=== PATIENT | female | born 1940 | race Hispanic/Latino ===

== ENCOUNTER → 2017-10-08 | Outpatient (CLI) | payer OTHER | LOC: SHCH 14:00 | PROVIDERS: ATTEND Internal Medicine Cardiovascular Disease | DX: K21.9 Gastro-esophageal reflux disease without esophagitis (principal) | CPT/HCPCS: 93970 ==

== ENCOUNTER → 2017-11-24 | Outpatient (CLI) | payer OTHER | END | disposition home or self-care (01) | LOC: SHCH 09:51 | PROVIDERS: ATTEND Internal Medicine Cardiovascular Disease | DX: Z09 Encounter for follow-up examination after completed treatment for conditions other than malignant neoplasm (principal) | CPT/HCPCS: 93971 ==

== ENCOUNTER 2020-05-15 07:30 | Emergency (ER) | payer OTHER ==
[~2020-05-15] VITALS: Ht 152.4 cm; Wt 80.3 kg
[2020-05-15 07:40] LABS: BASOPHILS % (AUTO) 0.4 % (0.0-5.0); EOSINOPHILS % (AUTO) 1.9 % (0.0-8.0); HEMATOCRIT 38.4 % (36-48); LYMPHOCYTES % (AUTO) 18.5 % (21.0-51.0); MEAN CORPUSCULAR HEMOGLOBIN 25.7 pg (27.0-33.0); MEAN CORPUSCULAR HGB CONC 30.7 g/dL (32.0-36.0); MEAN CORPUSCULAR VOLUME 83.7 fL (79-99); MONOCYTES % (AUTO) 6.8 % (3.0-13.0); NEUTROPHILS % (AUTO) 71.9 % (40.0-77.0); PLATELET COUNT (AUTO) 148 K/uL (130-400); RED BLOOD CELL COUNT(AUTO) 4.59 MIL/uL (4.00-5.50); RED CELL DISTRIBUTION WIDTH 14.6 % (11.0-15.5)
[2020-05-15 07:52] LABS: ALBUMIN 3.5 g/dL (3.5-5.0); BILIRUBIN,TOTAL 0.4 mg/dL (0.2-1.0); CREATININE 0.9 mg/dL (0.5-1.5); TOTAL PROTEIN, SERUM 6.8 g/dL (6.0-8.3)
[2020-05-15] MEDS ORDERED: ACETAMINOPHEN EXTRA STRENGTH 500 MG TABLET ONE (10:16)
[2020-05-15] MEDS ORDERED: KETOROLAC TROMETHAMINE 30MG/ML ONE (10:16)
[2020-05-15] MEDS ORDERED: LIDOCAINE 5% TOPICAL PATCH TP ONE (10:25)
[2020-05-15] MEDS ORDERED: NIFEDIPINE 10 MG CAP PO SCH (10:30)
[2020-05-15] MEDS ORDERED: NIFEDIPINE 10 MG CAP ONE (10:33)
== END 2020-05-15 12:19 | disposition home or self-care (01) ==
LOC: EDH 07:30
DX: S22.42XA Multiple fractures of ribs, left side, initial encounter for closed fracture (principal); S40.012A Contusion of left shoulder, initial encounter; S40.022A Contusion of left upper arm, initial encounter; E78.00 Pure hypercholesterolemia, unspecified; W18.39XA Other fall on same level, initial encounter; Y93.01 Activity, walking, marching and hiking; Y92.89 Other specified places as the place of occurrence of the external cause; Y99.8 Other external cause status
CPT/HCPCS: 36415; 70450; 71101; 71250; 73030; 73060; 80053; 85025; 93005; 96374; 99284; J1885

== ENCOUNTER → 2022-12-12 | Outpatient (CLI) | payer MEDICARE | END | disposition home or self-care (01) | LOC: RAH 07:39 | PROVIDERS: ATTEND Orthopaedic Surgery | DX: M47.816 Spondylosis without myelopathy or radiculopathy, lumbar region (principal); M48.061 Spinal stenosis, lumbar region without neurogenic claudication; M51.26 Other intervertebral disc displacement, lumbar region | CPT/HCPCS: 72148 ==

== ENCOUNTER 2023-07-02 09:19 | Emergency (ER) | payer MEDICARE, OTHER ==
[~2023-07-02] VITALS: Ht 152.4 cm; Wt 81.2 kg
[2023-07-02 10:06] LABS: APPEARANCE,URINE TURBID (CLEAR); BILIRUBIN,URINE NEGATIVE (NEGATIVE); COLOR,URINE YELLOW (YELLOW); GLUCOSE, URINE (UA) NEGATIVE (NEGATIVE); KETONES,URINE NEGATIVE (NEGATIVE); LEUKOCYTE ESTERASE ,URINE 500 Leu/uL (NEGATIVE); NITRATE,URINE NEGATIVE (NEGATIVE); OCCULT BLOOD,URINE MODERATE (NEGATIVE); PROTEIN,URINE 70 mg/dL (NEGATIVE); UROBILINOGEN,URINE 0.2 mg/dL (0.2-1.0)
[2023-07-02 10:11] LABS: ADD UA MICROSCOPIC YES
[2023-07-02] MEDS ORDERED: CEFTRIAXONE 1G VIAL IM ONE (10:30)
[2023-07-02] MEDS ORDERED: PHENAZOPYRIDINE HCL 200 MG TABLET PO ONE (10:30)
[2023-07-02] MEDS ORDERED: LIDOCAINE HCL 1% 20 ML VIAL ONE (10:41)
[2023-07-02 10:52] LABS: BACTERIA,URINE MOD /HPF (None Seen); MUCUS,URINE RARE LPF (None Seen); RBC,URINE 51-100 /HPF (0-1); TRANSITIONAL EPI CELLS,URINE FEW /HPF (None Seen); WBC CLUMP MANY /HPF (0-1); WBC,URINE TNTC /HPF (0-1); YEAST,URINE BUDDING RARE /HPF (None Seen)
[2023-07-02] MEDS ORDERED: CEPH500B PO (11:43)
[2023-07-02 11:50] VITALS: BP 144/88; PULSE 88; RESP 16; O2SAT 97
== END 2023-07-02 12:03 | disposition home or self-care (01) ==
LOC: EDH 09:19
DX: N39.0 Urinary tract infection, site not specified (principal); R35.0 Frequency of micturition; R30.0 Dysuria; R31.9 Hematuria, unspecified
CPT/HCPCS: 99283; 87077; 87088; 87186; 81001; 96372; J0696

== ENCOUNTER → 2023-07-22 | Outpatient (CLI) | payer MEDICARE ==
[~2023-07-22] MED LIST: CEPH500B PO; REGADENOSON 0.4 MG/5 ML PF SYG IVP ONE
== END | disposition home or self-care (01) ==
LOC: SHCH 08:41
PROVIDERS: ATTEND Internal Medicine Cardiovascular Disease
DX: R94.39 Abnormal result of other cardiovascular function study (principal); R06.09 Other forms of dyspnea; R07.9 Chest pain, unspecified
CPT/HCPCS: 78452; 96374; 93017; J2785; A9500 ×2

== ENCOUNTER → 2023-07-26 | Outpatient (CLI) | payer MEDICARE ==
[~2023-07-26] MED LIST changes: -REGADENOSON 0.4 MG/5 ML PF SYG IVP ONE
== END | disposition home or self-care (01) ==
LOC: SHCH 07:43
PROVIDERS: ATTEND Internal Medicine Cardiovascular Disease
DX: I87.2 Venous insufficiency (chronic) (peripheral) (principal); I82.412 Acute embolism and thrombosis of left femoral vein; I87.1 Compression of vein
CPT/HCPCS: 93970

== ENCOUNTER → 2023-07-28 | Outpatient (CLI) | payer MEDICARE | END | disposition home or self-care (01) | LOC: RAH 11:25 | PROVIDERS: ATTEND Orthopaedic Surgery | DX: M16.12 Unilateral primary osteoarthritis, left hip (principal); M17.12 Unilateral primary osteoarthritis, left knee; M85.88 Other specified disorders of bone density and structure, other site; M25.462 Effusion, left knee; M19.072 Primary osteoarthritis, left ankle and foot | CPT/HCPCS: 73700 ==

== ENCOUNTER → 2023-09-08 | Outpatient (CLI) | payer MEDICARE ==
[2023-09-08 10:28] LABS: CREATININE 0.9 mg/dL (0.5-1.5); POTASSIUM 4.2 mmol/L (3.5-5.1)
== END | disposition home or self-care (01) ==
LOC: LAB 09:12
PROVIDERS: ATTEND Internal Medicine Cardiovascular Disease
DX: I25.10 Atherosclerotic heart disease of native coronary artery without angina pectoris (principal)
CPT/HCPCS: 36415; 80048

== ENCOUNTER 2023-10-14 10:16 | Emergency (ER) | payer MEDICARE ==
[~2023-10-14] VITALS: Ht 152.4 cm; Wt 78.5 kg
[2023-10-14 14:08] VITALS: BP 175/54; PULSE 68; RESP 17; O2SAT 98
[2023-10-14] MEDS ORDERED: METO-296 PO (15:50)
[2023-10-14] MEDS ORDERED: HYDR50CA50 PO (15:50)
[2023-10-16] MEDS ORDERED: PRAV20TA4 PO (10:21)
[2023-10-16] MEDS ORDERED: LOSA25TA41 PO (10:21)
[2023-10-16] MEDS ORDERED: METF-444 PO (10:21)
== END 2023-10-14 16:03 | disposition home or self-care (01) ==
LOC: EDH 10:16
DX: G44.209 Tension-type headache, unspecified, not intractable (principal); I10 Essential (primary) hypertension; E11.9 Type 2 diabetes mellitus without complications; E78.00 Pure hypercholesterolemia, unspecified
CPT/HCPCS: 70450; 72125

== ENCOUNTER 2023-10-21 06:11 | Observation (INO) | payer MEDICARE ==
[2023-10-16 09:54] VITALS: BP 169/62; PULSE 77; RESP 16
[2023-10-16 10:08] LABS: BASOPHILS # (AUTO) 0.05 K/uL (0.00-0.20); BASOPHILS % (AUTO) 0.5 % (0.0-5.0); EOSINOPHILS # (AUTO) 0.13 K/uL (0.00-0.70); EOSINOPHILS % (AUTO) 1.2 % (0.0-8.0); HEMATOCRIT 37.2 % (36-48); IMMATURE GRANULOCYTE ABSOLUTE 0.04 K/uL (0-1); LYMPHOCYTES # (AUTO) 1.7 K/uL (1.0-4.8); LYMPHOCYTES % (AUTO) 15.2 % (21.0-51.0); MEAN CORPUSCULAR HEMOGLOBIN 27.7 pg (27.0-33.0); MEAN CORPUSCULAR HGB CONC 31.7 g/dL (32.0-36.0); MEAN CORPUSCULAR VOLUME 87.3 fL (79-99); MONOCYTES # (AUTO) 0.7 K/uL (0.1-1.0); MONOCYTES % (AUTO) 6.1 % (3.0-13.0); NEUTROPHILS # (AUTO) 8.5 K/uL (1.8-7.7); NEUTROPHILS % (AUTO) 76.6 % (40.0-77.0); PLATELET COUNT (AUTO) 155 K/uL (130-400); RED BLOOD CELL COUNT(AUTO) 4.26 MIL/uL (4.00-5.50); RED CELL DISTRIBUTION WIDTH 14.4 % (11.0-15.5)
[2023-10-16 10:14] LABS: CREATININE 0.9 mg/dL (0.5-1.0); POTASSIUM 4.4 mmol/L (3.5-5.1)
[2023-10-16 10:29] LABS: INR <= 0.93 (0.85-1.15); PROTHROMBIN TIME 10.5 SEC (9.6-11.6)
[2023-10-16 10:31] LABS: PARTIAL THROMBOPLASTIN TIME 32.2 SEC (26.3-35.5)
[~2023-10-21] VITALS: Ht 152.4 cm; Wt 84.4 kg
[2023-10-21] VITALS (24 sets, daily range): BP systolic 124–158; BP diastolic 55–82; PULSE 58–80; RESP 15–18
[~2023-10-21 06:11] MED LIST changes: -CEPH500B PO; +LOSA25TA41 PO; +METF-444 PO; +PRAV20TA4 PO
[2023-10-21] MEDS ORDERED: DEXAMETHASONE SOD PHOSPHATE 10MG/ML 1ML VIAL ONE (06:50)
[2023-10-21] MEDS ORDERED: MIDAZOLAM HCL 1 MG/ML 2ML VIAL ONE ×2 (06:50→07:51)
[2023-10-21] MEDS ORDERED: LIDOCAINE PF 100MG/5ML (2%) SYRINGE 5ML ONE (06:50)
[2023-10-21] MEDS ORDERED: NEOSTIGMINE METHYLSULFATE 1MG/ML IV ONE (06:50)
[2023-10-21] MEDS ORDERED: PROPOFOL 10 MG/ML 20ML VIAL IV ONE (06:50)
[2023-10-21] MEDS ORDERED: GLYCOPYRROLATE 0.2 MG/ML 5 ML VIAL ONE (06:50)
[2023-10-21] MEDS ORDERED: SUCCINYLCHOLINE CHLORIDE 20 MG/ML 10 ML VIAL ONE (06:50)
[2023-10-21] MEDS ORDERED: FENTANYL CITRATE PF 50 MCG/1 ML 2ML VIAL ONE ×2 (06:51→08:27)
[2023-10-21] MEDS ORDERED: ROCURONIUM BROMIDE 10MG/1ML 5ML VL ONE (06:51)
[2023-10-21] MEDS ORDERED: ONDANSETRON 4MG INJ ONE (06:51)
[2023-10-21] MEDS: CEFAZOLIN SODIUM 2 GM VIAL ONE (06:53)
[2023-10-21] MEDS ORDERED: ROPIVACAINE 0.5% 5MG/ML 30ML ONE (06:55)
[2023-10-21] MEDS ORDERED: PHENYLEPHRINE HCL 10 MG/ML 1ML VIAL IV ONE (07:00)
[2023-10-21] MEDS ORDERED: TRANEXAMIC ACID 1000MG/10ML ONE (08:30)
[2023-10-21] MEDS: 0.9%NACL 1000ML 1,000 ML IV ONE (09:14)
[2023-10-21] MEDS ORDERED: MEPERIDINE-PF 25 MG/ML SYG ONE (09:25)
[2023-10-21] MEDS ORDERED: KCL 20 MEQ ERTAB PO PRN (10:00)
[2023-10-21] MEDS ORDERED: ONDANSETRON 4MG INJ IVP PRN (10:00)
[2023-10-21] MEDS ORDERED: POTASSIUM CHLORIDE 10% ELIXIR 20 MEQ/15 ML UDCUP PO PRN (10:00)
[2023-10-21] MEDS ORDERED: MORPHINE 4 MG SYG IVP PRN (10:00)
[2023-10-21] MEDS ORDERED: POTASSIUM CHLORIDE 20MEQ/100ML 100 ML IV PRN (10:00)
[2023-10-21] MEDS: ACETAMINOPHEN 1,000 MG/100 ML VIAL IV ONE (10:31)
[2023-10-21] MEDS: ACETAMINOPHEN 1,000 MG/100 ML VIAL IV SCH (10:31)
[2023-10-21] MEDS: INSULIN HUMULIN R 100 UNIT/ML 3ML SQ SCH (11:30)
[2023-10-21] MEDS: HYDROCODONE/ACETAMINOPHEN 10/325 MG TAB ONE (11:55)
[2023-10-21] MEDS: CEFAZOLIN SODIUM 2 GM VIAL IVPB SCH (16:00)
[2023-10-21] MEDS: IBUPROFEN 800MG + NS 250ML IV SCH (16:00)
[2023-10-21] MEDS: 0.9%NACL 1000ML 1,000 ML IV SCH (16:00)
[2023-10-21] MEDS: ATORVASTATIN 10 MG TABLET PO SCH (20:03)
[2023-10-21] MEDS: METFORMIN HCL 500 MG TABLET PO SCH (20:03)
[2023-10-21] MEDS: ASPIRIN 81 MG EC TAB PO SCH (20:03)
[2023-10-21] MEDS: FAMOTIDINE 20MG TAB PO SCH (20:03)
[2023-10-21] MEDS: LOSARTAN 25 MG TABLET PO SCH (20:03)
[2023-10-21] MEDS ORDERED: PHARMACY COMMUNICATION MISC SCH ×2 (20:30→21:00)
[2023-10-21] MEDS ORDERED: NON-FORMULARY MEDICATION 1 EACH (Pravastatin Sodium 1 TAB) PO SCH (21:00)
[2023-10-22] VITALS: BP 144/59; PULSE 82; RESP 17
[2023-10-22 04:00] VITALS: BP 145/66; PULSE 71; RESP 18
[2023-10-22 05:11] LABS: HEMATOCRIT 29.9 % (36-48); MEAN CORPUSCULAR HEMOGLOBIN 27.3 pg (27.0-33.0); MEAN CORPUSCULAR HGB CONC 31.4 g/dL (32.0-36.0); MEAN CORPUSCULAR VOLUME 86.9 fL (79-99); RED BLOOD CELL COUNT(AUTO) 3.44 MIL/uL (4.00-5.50); WHITE BLOOD COUNT (AUTO) 12.6 K/uL (4.8-10.8)
[2023-10-22 05:20] LABS: POTASSIUM 4.9 mmol/L (3.5-5.1)
[2023-10-22 08:00] VITALS: BP 133/60; PULSE 89; RESP 16
[2023-10-22] MEDS: FERROUS GLUCONATE 324MG TABLET.DR PO SCH (10:17)
[2023-10-22] MEDS: POLYETHYLENE GLYCOL 3350 17 GM POWD.PACK PO SCH (10:18)
[2023-10-22] MEDS: HYDROCODONE/ACETAMINOPHEN 5/325 MG TAB PO PRN (10:20)
[2023-10-22 11:44] VITALS: BP 143/67; PULSE 86; RESP 15
[2023-10-22] MEDS: HYDROCODONE/ACETAMINOPHEN 10/325 MG TAB PO PRN (16:38)
[2023-10-24] MEDS ORDERED: BISACODYL 10 MG SUPP.RECT RC PRN (10:00)
[2023-10-26] MEDS ORDERED: SIMV-43 PO (13:19)
[2023-10-26] MEDS ORDERED: METO25 PO (13:19)
[2023-10-26] MEDS ORDERED: LEVO750T68 PO (13:19)
[2023-11-13] MEDS ORDERED: METF-444 PO (04:01)
[2023-11-13] MEDS ORDERED: CELE-146 PO (04:01)
[2023-11-13] MEDS ORDERED: SIMV-43 PO (04:01)
== END 2023-10-22 18:45 | disposition home or self-care (01) ==
LOC: DAH 06:11 → DAHIP 06:12 → 4CH 15:30
PROVIDERS: ADMIT Orthopaedic Surgery; ATTEND Orthopaedic Surgery
DX: M17.12 Unilateral primary osteoarthritis, left knee (principal); I10 Essential (primary) hypertension; E11.9 Type 2 diabetes mellitus without complications; E78.5 Hyperlipidemia, unspecified; E66.9 Obesity, unspecified; Z79.899 Other long term (current) drug therapy; Z86.2 Personal history of diseases of the blood and blood-forming organs and certain disorders involving the immune mechanism
CPT/HCPCS: 87641; 36415; 80048; 85025; 85730; 85610; A6260; 82948; 85027; 96365; 96366; 96368; 96375; 96376; C1713; G0378; J0330; J1100; J1741; J1815; J2001; J2175; J2250; J2371; J2405; J2704; J2710; J2795; J3010; J3490; J7030; A4215; A4221; A4222; A4223; A4649; A4663; A4930; A5120; A6212; A6219; A6223; C1776; G0168; J0690

== ENCOUNTER 2023-11-08 17:52 | Emergency (ER) | payer MEDICARE ==
[~2023-11-08] VITALS: Ht 152.4 cm; Wt 77.1 kg
[~2023-11-08 17:52] MED LIST changes: +LEVO750T68 PO; +METO25 PO; +SIMV-43 PO
[2023-11-08 20:20] LABS: BASOPHILS # (AUTO) 0.02 K/uL (0.00-0.20); BASOPHILS % (AUTO) 0.2 % (0.0-5.0); EOSINOPHILS # (AUTO) 0.12 K/uL (0.00-0.70); EOSINOPHILS % (AUTO) 1.4 % (0.0-8.0); IMMATURE GRANULOCYTE ABSOLUTE 0.03 K/uL (0-1); LYMPHOCYTES # (AUTO) 1.4 K/uL (1.0-4.8); LYMPHOCYTES % (AUTO) 16.6 % (21.0-51.0); MEAN CORPUSCULAR HEMOGLOBIN 27.8 pg (27.0-33.0); MEAN CORPUSCULAR HGB CONC 32.1 g/dL (32.0-36.0); MEAN CORPUSCULAR VOLUME 86.8 fL (79-99); MONOCYTES # (AUTO) 0.6 K/uL (0.1-1.0); MONOCYTES % (AUTO) 6.6 % (3.0-13.0); NEUTROPHILS # (AUTO) 6.3 K/uL (1.8-7.7); NEUTROPHILS % (AUTO) 74.8 % (40.0-77.0); PLATELET COUNT (AUTO) 152 K/uL (130-400); RED BLOOD CELL COUNT(AUTO) 3.34 MIL/uL (4.00-5.50); RED CELL DISTRIBUTION WIDTH 14.8 % (11.0-15.5); WHITE BLOOD COUNT (AUTO) 8.4 K/uL (4.8-10.8)
[2023-11-08 20:30] LABS: CREATININE 0.8 mg/dL (0.5-1.0); POTASSIUM 3.8 mmol/L (3.5-5.1)
[2023-11-08 20:38] LABS: BILIRUBIN,TOTAL 0.6 mg/dL (0.2-1.0); TOTAL PROTEIN, SERUM 6.2 g/dL (6.0-8.3)
[2023-11-08 21:02] LABS: B-TYPE NATRIURETIC PEPTIDE 858 pg/mL (0-100)
[2023-11-08] MEDS ORDERED: TRAM50TA4 PO (21:30)
[2023-11-08] MEDS ORDERED: ALEN35TA53 PO (21:30)
[2023-11-08] MEDS ORDERED: MELO10CA3 PO (21:31)
[2023-11-08 22:30] VITALS: BP 146/68; PULSE 70; RESP 18; O2SAT 96
== END 2023-11-08 22:37 | disposition home or self-care (01) ==
LOC: EDH 17:52
DX: M54.32 Sciatica, left side (principal); I10 Essential (primary) hypertension; E11.9 Type 2 diabetes mellitus without complications; E78.00 Pure hypercholesterolemia, unspecified; M43.16 Spondylolisthesis, lumbar region; M47.816 Spondylosis without myelopathy or radiculopathy, lumbar region; Z98.890 Other specified postprocedural states; Z79.84 Long term (current) use of oral hypoglycemic drugs; Z79.899 Other long term (current) drug therapy; Z88.1 Allergy status to other antibiotic agents; Z88.8 Allergy status to other drugs, medicaments and biological substances
CPT/HCPCS: 36415; 72110; 73502; 80053; 83880; 85025; 93970

== ENCOUNTER 2024-08-07 02:18 | Emergency (ER) | payer MEDICARE ==
[~2024-08-07] VITALS: Ht 152.4 cm; Wt 78.5 kg
[~2024-08-07 02:18] MED LIST changes: +ALEN35TA53 PO; +CELE-146 PO; +MELO10CA3 PO; -PRAV20TA4 PO; +TRAM50TA4 PO
[2024-08-07 02:20] VITALS: TEMP 99.9
--- NOTE | 2024-08-07 02:42 | ERN ---
ED Note History of Present Illness Stated Complaint: L OCCIPITAL HEADACHE X 1 WEEK Chief Complaint: Headache Time Seen by MD: 02:19 Time Seen by Midlevel: 02:19 Dictation: The patient is an 84-year-old female with a history of hypertension, hyperlipide vickey who presents to the emergency department with complaints of left occipital headache onset three days ago. Patient denies any trauma, denies any nausea or vomiting, denies any dizziness, denies any fevers or any other complaints. Allergies: Coded Allergies: cephalexin (Unverified Allergy, Mild, RASH, 10/21/23) No Known Drug Allergies (Verified Allergy, Unknown, 05/15/20) Home Meds Active Scripts Meloxicam, Submicronized (Meloxicam) 10 Mg Capsule, 10 MG PO DAILY, #30 CAP Prov:BRUCE PARKINSON MD 11/08/23 Levofloxacin (Levaquin 750Mg Tabs) 750 Mg Tablet, 750 MG PO DAILY for 7 Days, #7 TAB Prov:BEKA COPE [employer]ING [employer]ER 10/26/23 Simvastatin (Simvastatin) 20 Mg Tablet, 40 MG PO HS for 30 Days, #30 TAB Prov:BEKA COPE [employer] 10/26/23 Metoprolol Tartrate (Lopressor) 25 Mg Tab, 25 MG PO BID for 30 Days, #60 TAB Prov:BEKA COPE [employer] 10/26/23 Reported Medications Celecoxib (Celecoxib) 100 Mg Capsule, 100 MG PO BID, CAP 11/13/23 Metformin HCl (Metformin HCl) 500 Mg Tablet, 500 MG PO DAILY, TAB 11/13/23 Simvastatin (Simvastatin) 20 Mg Tablet, 20 MG PO HS, TAB 11/13/23 Alendronate Sodium (Alendronate Sodium) 35 Mg Tablet, 1 TAB PO QWEEK 11/08/23 Tramadol Hcl (Tramadol HCl) 50 Mg Tablet, 1 TAB PO Q6HPRN PRN for PAIN 11/08/23 Metformin HCl (Metformin HCl) 500 Mg Tablet, 1 TAB PO HS 10/16/23 Losartan Potassium (Losartan Potassium) 25 Mg Tablet, 1 TAB PO HS 10/16/23 Past Medical History Past Medical History: Diabetes-Type II, High Cholesterol, Heart Disease, Hypertension Surgical History: Appendectomy Surgical History Other: LEFT KNEE REPLACEMENT Family History: Negative Social History: Negative RN Note Reviewed/Agreed w/PFSH: Yes Review of System Dictation Constitutional: Negative for fever,chills, and weight loss Eyes: Negative for injury, pain,redness, and discharge ENT: Negative for injury,pain or swelling Cardiovascular: Negative for chest pain, palpitations, and edema Respiratory: Negative for shortness of breath, cough, and wheezing, Abdomen/GI: Negative for abdominal pain, nausea, vomiting, diarrhea, and constipation Back: Negative for injury and pain : Negative for injury, bleeding and discharge MS/Extremity: Negative for injury and deformity Skin: Negative for rash, and discoloration Neuro: Negative for weakness, numbness, tingling, and seizure positive for headache Psych: Negative for suicide ideation, homicidal ideation, and hallucinations Initial Vital Sign VS Vital Signs Date Time Temp Pulse Resp B/P (MAP) Pulse Ox O2 Delivery O2 Flow Rate FiO2 08/07/24 02:19 99.9 82 16 136/54 97 Room Air* 0 21 Physical Exam Dictation Vital Signs reviewed General Appearance: Alert, oriented x 3, no acute distress, well developed, nourished. Head and Face: non-traumatic. Eyes: PERRL, pink conjunctivas, eyelid no trauma, anterior chamber with arcus senilis. Ears: Pinnas intact and no signs of trauma or erythema ear canals clear and no discharge TM no erythema Nose: No discharge, no bleeding. Oropharynx: Mouth normal, tongue pink. pharynx clear,no erythema, tonsils no exudates, no abscesses noted, mucous membrane moist Neck: Supple, non-tender, no thyromegaly, no masses, no JVD, no bruits Breast:Deferred Chest:No tenderness, no crepitus, no paradoxical movement, no retractions Lungs:Clear, well-ventilated, symmetric, no rales, no wheezing, no rhonchi, no stridor, good breath sounds bilaterally Heart: Regular rate, regular rhythm, no murmur, no gallops Vascular: no peripheral edema, Abdomen: Soft, positive bowel sounds, nondistended, no guarding, nontender, no rebound, no masses no hepatomegaly, no splenomegaly, no Lopez's sign, no hernias. Rectal: Deferred Genital: Deferred Neurological: Normal speech, motor function intact, sensory function intact Musculoskeletal: Neck nontender, full range of motion, back nontender, full range of motion, no facial droop, no slurred speech, upper extremities equal and strength, lower extremities equal and strength Extremities: nontender, full range of motion Skin: Color pink, dry, no turgor, no rash, no lacerations, no abrasions, no contusions. Lymphatic: Deferred Results (Laboratory/Radiology) Laboratory/Radiology Laboratory Tests Test 08/07/24 02:29 08/07/24 03:21 White Blood Count 10.8 K/uL (4.8-10.8) Red Blood Count 3.49 MIL/uL (4.00-5.50) L Hemoglobin 9.6 g/dL (12.0-16.0) L Hematocrit 30.3 % (36-48) L Mean Corpuscular Volume 86.8 fL (79-99) Mean Corpuscular Hemoglobin 27.5 pg (27.0-33.0) Mean Corpuscular Hemoglobin Concent 31.7 g/dL (32.0-36.0) L Red Cell Distribution Width 13.8 % (11.0-15.5) Platelet Count 158 K/uL (130-400) Mean Platelet Volume 11.4 fL (7.5-10.5) H Immature Granulocyte % (Auto) 0.4 % (0-1) Neutrophils (%) (Auto) 82.4 % (40.0-77.0) H Lymphocytes (%) (Auto) 9.9 % (21.0-51.0) L Monocytes (%) (Auto) 6.5 % (3.0-13.0) Eosinophils (%) (Auto) 0.6 % (0.0-8.0) Basophils (%) (Auto) 0.2 % (0.0-5.0) Neutrophils # (Auto) 8.9 K/uL (1.8-7.7) H Lymphocytes # (Auto) 1.1 K/uL (1.0-4.8) Monocytes # (Auto) 0.7 K/uL (0.1-1.0) Eosinophils # (Auto) 0.06 K/uL (0.00-0.70) Basophils # (Auto) 0.02 K/uL (0.00-0.20) Absolute Immature Granulocyte (auto 0.04 K/uL (0-1) Nucleated Red Blood Cells 0.0 % (0.0-0.19) White Cell Morphology Comment See comments Sodium Level 134 mmol/L (136-145) L Potassium Level 3.7 mmol/L (3.5-5.1) Chloride Level 99 mmol/L (101-111) L Carbon Dioxide Level 29 mmol/L (21-32) Blood Urea Nitrogen 26 mg/dL (7-18) H Creatinine 1.0 mg/dL (0.5-1.0) Glomerular Filtration Rate Calc 55 mL/min (>90) Random Glucose 279 mg/dL (70-105) H Total Calcium 8.6 mg/dL (8.5-10.1) Influenza Type A Antigen Negative For Type A Influenza Type B Antigen Negative For Type B SARS-CoV-2 Antigen (Rapid) PRESUMPTIVE NEGATIVE Labs Reviewed?: Yes CT Scan Comment: CT head- comparison to 11/12/2023, no acute intracranial findings substantial change, mild age-related generalized brain volume loss and chronic small-vessel ischemic changes. ED Course ED Course Orders Procedure Category Date Status Time Cbc With Differential LAB 08/07/24 Complete 02:37 0.9%Nacl 1000ml (Ns PHA 08/07/24 In Process 1000ml) 03:00 Acetaminophen 325 Tab PHA 08/07/24 Complete (Tylenol 325mg Tab 03:00 Basic Metabolic Panel LAB 08/07/24 Complete 02:37 Covid19 (Sars Antigen LAB 08/07/24 Complete Rapid) 02:37 Influenza Type A & B, LAB 08/07/24 Complete Rapid 02:37 Ct Head/Brain W/O CT 08/07/24 Taken Contrast 02:37 Current Medications Medications (Trade) Dose Ordered Sig/Nikita Route PRN Reason Start Time Stop Time Status Last Admin Dose Admin Acetaminophen (TYLenol 325MG TAB) 650 mg ONCE ONCE PO 08/07/24 03:00 08/07/24 03:01 DC 08/07/24 03:10 Sodium Chloride 1,000 ml @ 125 mls/hr ONCE ONCE IV 08/07/24 03:00 08/07/24 10:59 08/07/24 03:10 Vital Signs Date Time Temp Pulse Resp B/P (MAP) Pulse Ox O2 Delivery O2 Flow Rate FiO2 08/07/24 05:18 76 16 136/46 97 Room Air* 0 21 08/07/24 03:23 85 16 159/77 98 Room Air* 0 08/07/24 02:20 99.9 82 16 136/54 97 0 08/07/24 02:19 99.9 82 16 136/54 97 Room Air* 0 21 Medical Decision Making MDM The patient is an 84-year-old female with a history of hypertension, hyperlipidemia who presents to the emergency department with complaints of left occipital headache onset three days ago. Patient denies any trauma, denies any nausea or vomiting, denies any dizziness, denies any fevers or any other complaints. Differential diagnosis: Electrolyte imbalance, intracerebral hemorrhage, headache, dehydration, chronic tension headache Laboratory workup negative for acute findings. CT of the head did not disclose acute findings either. On physical exam pain is more localized to the left trapezius muscle extending to the occipital region of the head. Headache cocktail help with the discomfort patient will be discharged in stable condition. I advised her appropriate follow up with PCP for ongoing evaluation. DX & DISP Disposition: Discharge Departure Impression: Primary Impression: Tension headache Condition: Stable Scripts Diclofenac Sodium (Voltaren Arthritis Pain) 1 % Gel..gram. 4 GM TP BID for 10 Days, #1 TUBE Prov: CLEMENTE VASQUEZ MD 08/07/24 Additional Instructions: FOLLOW-UP WITH PRIMARY CARE PROVIDER IN 1 TO 2 DAYS. TAKE MEDICATIONS DIRECTED HERE IN THE EMERGENCY ROOM. OKAY TO CONTINUE HOME MEDICATIONS UNLESS OTHERWISE DISCUSSED DURING YOUR VISIT IN THE EMERGENCY ROOM TODAY. RETURN TO YOUR NEAREST EMERGENCY ROOM IF SYMPTOMS WORSEN OR IF THERE IS NO IMPROVEMENT. CALL 911 IF YOU NEED IMMEDIATE ASSISTANCE. TAKE TYLENOL [id number] NEEDED AND IF NO CONTRAINDICATIONS ARE PRESENT. INCREASE ORAL HYDRATION. A WOUND CULTURE OR URINE CULTURE WAS ORDERED HERE IN THE EMERGENCY ROOM DEPARTMENT PLEASE FOLLOW-UP WITH PRIMARY CARE PROVIDER AND ADVISE THEM TO GET REPEAT PORTS FROM OUR FACILITY. IF YOU HAD ANY SANJANA WRAP/SPLINTS THAT WERE APPLIED HERE, PLEASE DO NOT REMOVE THEM UNTIL YOU SEE YOUR PRIMARY CARE OR SPECIALTY. Referrals: Referrals: ANTHONY ROYAL MD (PCP) Time of Disposition: 05:47 EDIS SERVIN Aug 07, 2024 02:42 CLEMENTE VASQUEZ MD Aug 07, 2024 05:49
[2024-08-07] MEDS: 0.9%NACL 1000ML 1,000 ML IV ONE (03:10)
[2024-08-07] MEDS: acetaMINOPHEN 325 MG TAB PO ONE (03:10)
[2024-08-07 03:37] LABS: BASOPHILS # (AUTO) 0.02 K/uL (0.00-0.20); BASOPHILS % (AUTO) 0.2 % (0.0-5.0); EOSINOPHILS # (AUTO) 0.06 K/uL (0.00-0.70); EOSINOPHILS % (AUTO) 0.6 % (0.0-8.0); HEMATOCRIT 30.3 % (36-48); IMMATURE GRANULOCYTE ABSOLUTE 0.04 K/uL (0-1); LYMPHOCYTES # (AUTO) 1.1 K/uL (1.0-4.8); LYMPHOCYTES % (AUTO) 9.9 % (21.0-51.0); MEAN CORPUSCULAR HEMOGLOBIN 27.5 pg (27.0-33.0); MEAN CORPUSCULAR HGB CONC 31.7 g/dL (32.0-36.0); MEAN CORPUSCULAR VOLUME 86.8 fL (79-99); MONOCYTES # (AUTO) 0.7 K/uL (0.1-1.0); MONOCYTES % (AUTO) 6.5 % (3.0-13.0); NEUTROPHILS # (AUTO) 8.9 K/uL (1.8-7.7); NEUTROPHILS % (AUTO) 82.4 % (40.0-77.0); PLATELET COUNT (AUTO) 158 K/uL (130-400); RED BLOOD CELL COUNT(AUTO) 3.49 MIL/uL (4.00-5.50); RED CELL DISTRIBUTION WIDTH 13.8 % (11.0-15.5); WHITE BLOOD COUNT (AUTO) 10.8 K/uL (4.8-10.8)
[2024-08-07 03:41] LABS: POTASSIUM 3.7 mmol/L (3.5-5.1)
[2024-08-07 03:45] LABS: INFLUENZA TYPE A Negative For Type A (NEGATIVE); INFLUENZA TYPE B Negative For Type B (NEGATIVE)
[2024-08-07 04:22] LABS: COVID19 (SARS ANTIGEN RAPID) PRESUMPTIVE NEGATIVE (NEGATIVE)
[2024-08-07] MEDS ORDERED: DICL20GE TP (05:48)
--- NOTE | 2024-08-07 05:54 | NUR ---
HUSBANDS NUMBER: OR
[2024-08-07 06:21] VITALS: BP 142/51; PULSE 78; RESP 16; O2SAT 97
--- NOTE | 2024-08-07 06:23 | NUR ---
DEO DIAZ (DAUGHTER)
--- NOTE | 2024-08-07 06:38 | NUR ---
CONTACT WITH DAUGHTER MADE, AWAITING HER ARRIVAL TO HAVE PATIENT PICKED UP.
--- NOTE | 2024-08-07 08:08 | HMCIMG ---
CT HEAD WITHOUT CONTRAST INDICATION: Headache TECHNIQUE: Noncontrast axial helical CT images from the vertex through the skull base using 5 mm slice thickness without contrast material. Coronal and sagittal reconstructions were also included. Dose reduction techniques was used using integrated, automated and adaptive dose reduction exposure control. CT was performed with one or more of the following dose reduction techniques: Automated exposure control, adjustment of the mA and/or kV according to patient size, or use of iterative reconstruction technique. COMPARISON: 11/12/2023 FINDINGS: Mild scattered subcortical and mild coalescent periventricular white matter low attenuating areas likely represent residual of chronic small vessel arteriopathy and/or remote vascular insult. Generalized mild cerebral cortical atrophy is present.. No evidence for abnormal extra-axial fluid collections or masses. The ventricles and sulci are normal in size and configuration. No evidence for intracranial parenchymal, epidural, or subdural hemorrhage, mass effect or midline shift. The clancy-white matter differentiation is well preserved. No secondary evidence to suggest acute ischemia. Mild calcific plaque is present along the gutiérrez of the cavernous segments of both internal carotid arteries. The brainstem and cerebellum appear normal. The visualized orbits appear unremarkable. The visible paranasal sinuses and mastoid air cells are clear. The calvarium appears normal. IMPRESSION: Chronic white matter ischemic changes, mild brain atrophy, and arteriosclerotic disease as described, without acute component.
== END 2024-08-07 08:21 | disposition home or self-care (01) ==
LOC: EDH 02:18
DX: G44.209 Tension-type headache, unspecified, not intractable (principal); E11.9 Type 2 diabetes mellitus without complications; E78.00 Pure hypercholesterolemia, unspecified; I10 Essential (primary) hypertension; Z79.1 Long term (current) use of non-steroidal anti-inflammatories (NSAID); Z79.84 Long term (current) use of oral hypoglycemic drugs; Z79.899 Other long term (current) drug therapy; Z88.1 Allergy status to other antibiotic agents; Z90.49 Acquired absence of other specified parts of digestive tract; Z96.652 Presence of left artificial knee joint; Z20.822 Contact with and (suspected) exposure to COVID-19
CPT/HCPCS: 99284; 96360; 70450; 87426; 80048; 85025; 87804 ×2; 36415; J7030; 99285